=== PATIENT | female | born 1975 | race African-American/Black ===

== ENCOUNTER 2016-02-24 10:25 | Emergency (ER) | payer BC, OTHER ==
[~2016-02-24] VITALS: Ht 154.9 cm; Wt 72.6 kg
[~2016-02-24 10:25] MED LIST: CLONAZEPAM 0.50.5 M1 PO; NAPROSYN500 MG PO; NOHOMEMEDICATIONS; NORCO 5-325 TA1 EACH PO; ZYRTEC10 MG PO
[2016-02-24 10:29] VITALS: BP 144/99
[2016-02-24] MEDS ORDERED: OSELB75 PO (11:13)
[2016-02-24] MEDS ORDERED: PROVENTIL HFA6.7 G1 INH (11:13)
[2016-02-24] MEDS ORDERED: CORTISPORIN OTI10 M2 OTIC (11:13)
[2016-02-24] MEDS ORDERED: PROMETHAZINE-C120 ML PO (11:16)
== END 2016-02-24 11:59 | disposition home or self-care (01) ==
LOC: ER 10:25
DX: J11.1 Influenza due to unidentified influenza virus with other respiratory manifestations (principal); H60.91 Unspecified otitis externa, right ear; Z88.5 Allergy status to narcotic agent

== ENCOUNTER 2016-05-28 08:56 | Emergency (ER) | payer BC, OTHER ==
[~2016-05-28] VITALS: Ht 157.5 cm; Wt 90.7 kg
[~2016-05-28 08:56] MED LIST changes: +CORTISPORIN OTI10 M2 OTIC; +OSELB75 PO; +PROMETHAZINE-C120 ML PO; +PROVENTIL HFA6.7 G1 INH
[2016-05-28] MEDS ORDERED: WELLBUTRIN XL300 MG PO (09:11)
[2016-05-28 09:38] VITALS: BP 134/84
[2016-05-28] MEDS ORDERED: CIPROFLOXIN HC2.5 M1 OPHTHALMIC (10:01)
== END 2016-05-28 10:17 | disposition home or self-care (01) ==
LOC: ER 08:56
DX: T15.12XA Foreign body in conjunctival sac, left eye, initial encounter (principal); Z98.890 Other specified postprocedural states; Z88.6 Allergy status to analgesic agent; X58.XXXA Exposure to other specified factors, initial encounter; Y93.89 Activity, other specified; Y92.89 Other specified places as the place of occurrence of the external cause; Y99.8 Other external cause status

== ENCOUNTER 2017-07-16 21:04 | Emergency (ER) | payer BC, OTHER ==
[~2017-07-16] VITALS: Ht 154.9 cm; Wt 71.2 kg
[~2017-07-16 21:04] MED LIST changes: +CIPROFLOXIN HC2.5 M1 OPHTHALMIC; +NEOSPORIN + P28.3 GM TOP; +WELLBUTRIN XL300 MG PO
[2017-07-16] MEDS ORDERED: DIFLUCAN150 MG PO (22:27)
[2017-07-16 23:00] VITALS: BP 125/90
[2017-07-18 15:09] LABS: NEISSERIA GONORRHEA-PCR Negative (Negative)
== END 2017-07-16 23:01 | disposition home or self-care (01) ==
LOC: ER 21:04
PROVIDERS: Physician Assistant
DX: B37.3 Candidiasis of vulva and vagina (principal); Z88.6 Allergy status to analgesic agent

== ENCOUNTER → 2018-10-18 | Outpatient (CLI) | payer BC, OTHER ==
[~2018-10-18] MED LIST changes: +DIFLUCAN150 MG PO
== END ==
LOC: CAT 13:37
DX: R51 Headache (principal)

== ENCOUNTER → 2020-08-30 | Outpatient (CLI) | payer BC, OTHER | LOC: RAD 09:22 | PROVIDERS: ATTEND Obstetrics & Gynecology | DX: Z12.31 Encounter for screening mammogram for malignant neoplasm of breast (principal) ==

== ENCOUNTER 2020-11-28 01:47 | Emergency (ER) | payer BC, OTHER ==
[~2020-11-28] VITALS: Ht 154.9 cm; Wt 83.9 kg
[2020-11-28] MEDS ORDERED: TOPAMAX100 MG PO (02:04)
[2020-11-28] MEDS ORDERED: UNKNOWN BP MED (02:06)
[2020-11-28] MEDS ORDERED: VALIUM2 MG PO (04:09)
[2020-11-28] MEDS ORDERED: IBUPROFEN 800800 MG PO (04:09)
[2020-11-28 04:24] VITALS: BP 132/60
== END 2020-11-28 04:32 | disposition home or self-care (01) ==
LOC: ER 01:47
DX: S06.0X0A Concussion without loss of consciousness, initial encounter (principal); M54.6 Pain in thoracic spine; R51.9 Headache, unspecified; I10 Essential (primary) hypertension; Z98.890 Other specified postprocedural states; Z90.710 Acquired absence of both cervix and uterus; Z79.899 Other long term (current) drug therapy; Z88.6 Allergy status to analgesic agent; Z88.8 Allergy status to other drugs, medicaments and biological substances; V49.9XXA Car occupant (driver) (passenger) injured in unspecified traffic accident, initial encounter; Y93.89 Activity, other specified; Y92.89 Other specified places as the place of occurrence of the external cause; Y99.8 Other external cause status

== ENCOUNTER → 2020-12-03 | Outpatient (CLI) | payer OTHER ==
[~2020-12-03] MED LIST changes: +IBUPROFEN 800800 MG PO; +TOPAMAX100 MG PO; +UNKNOWN BP MED; +VALIUM2 MG PO
== END | disposition home or self-care (01) ==
LOC: RAD 16:22
PROVIDERS: ATTEND Family Medicine
DX: M41.85 Other forms of scoliosis, thoracolumbar region (principal)

== ENCOUNTER 2021-01-30 18:57 | Emergency (ER) | payer OTHER ==
[~2021-01-30] VITALS: Ht 154.9 cm; Wt 81.7 kg
[2021-01-30 19:10] VITALS: BP 164/105
[2021-01-30] MEDS ORDERED: VALIUM2 MG PO (21:55)
== END 2021-01-30 22:08 | disposition home or self-care (01) ==
LOC: ER 18:57
DX: S46.911A Strain of unspecified muscle, fascia and tendon at shoulder and upper arm level, right arm, initial encounter (principal); I10 Essential (primary) hypertension; Z98.890 Other specified postprocedural states; Z90.710 Acquired absence of both cervix and uterus; Z79.899 Other long term (current) drug therapy; Z88.8 Allergy status to other drugs, medicaments and biological substances; V89.2XXA Person injured in unspecified motor-vehicle accident, traffic, initial encounter; Y93.89 Activity, other specified; Y92.89 Other specified places as the place of occurrence of the external cause; Y99.8 Other external cause status